=== PATIENT | male | born 1955 | race African-American/Black ===

== ENCOUNTER 2016-11-30 05:28 | Day surgery (SDC) | payer OTHER ==
[2016-11-30] VITALS (9 sets, daily range): BP systolic 107–134; BP diastolic 70–86; PULSE 56–68; RESP 12–20; Ht 180.3 cm; Wt 111.6 kg
[~2016-11-30] VITALS: Ht 180.3 cm; Wt 111.6 kg
[2016-11-30] MEDS ORDERED: PHENYLephrine 2.5% 15 ML OPH OPER SCH (06:00)
[2016-11-30] MEDS ORDERED: CIPROFLOXACIN 0.3% 2.5 ML OPH OPER SCH (06:00)
[2016-11-30] MEDS ORDERED: PROPARACAINE 0.5% 15 ML OPH OPER SCH (06:00)
[2016-11-30] MEDS ORDERED: TROPICAMIDE 1% 15 ML OPH OPER SCH (06:00)
[2016-11-30] MEDS ORDERED: ACETAZOLAMIDE (SR) 500 MG CAP PO ONE (06:00)
[2016-11-30] MEDS ORDERED: EPINEPHrine 1 MG INJ ONE (06:42)
[2016-11-30] MEDS ORDERED: CEFAZOLIN 1 GM INJ ONE (06:42)
[2016-11-30] MEDS ORDERED: LIDOCAINE 1% (MPF) 10 ML INJ ONE (06:42)
[2016-11-30] MEDS ORDERED: DEXAMETHASONE 4 MG/ML 1 ML INJ ONE (06:42)
[2016-11-30] MEDS ORDERED: SODIUM HYALURONATE 14 MG/ML SYG ONE (06:44)
--- NOTE | 2016-11-30 06:58 | PREOPHP ---
DATE OF ADMISSION: 11/30/2016 CHIEF COMPLAINT: I'm having difficulty seeing with my other eye, and it is causing a lot of imbalan ce. HISTORY OF PRESENT ILLNESS: This is an almost 61-year-old gentleman who has been having painless pr ogressive loss of vision in both eyes, has ____ cataract extraction with good result in the right ey e. Now he requests to have the left eye done so that he can focus both eyes together and get rid of this imbalance between the 2 eyes. PAST MEDICAL HISTORY: Significant for osteoarthritis and hyperlipidemia. MEDICATIONS: Include: 1. Naproxen. 2. Cosopt eyedrops. ALLERGIES: THERE ARE NO KNOWN DRUG ALLERGIES. PAST SURGICAL HISTORY: Significant for the cataract in the right eye in 2016. REVIEW OF SYSTEMS: He denies having any fever, chills, nausea, vomiting, diarrhea, constipation, sh ortness of breath, chest pain, dysuria, dyspnea, any cough. SOCIAL HISTORY: He denies any history of smoking. PHYSICAL EXAMINATION: GENERAL: He is a well-developed, well-nourished gentleman. No acute distress. VITAL SIGNS: Temperature is 97.6, pulse 66, respirations 18, blood pressure is 122/80. Weight appr oximately 250 pounds. HEAD: Normocephalic, atraumatic. EARS, NOSE AND THROAT: Within normal limits. EYES: ____ acuity is count finger in both eyes. The slit lamp examination is essentially within no rmal limits. Pressure is 12 on the right, 16 on the left. The dilated exam shows posterior chamber intraocular lens in the right eye ____ nuclear sclerosis. Funduscopic examination shows cup-to-dis k about 0.9 with normal macula, disc, vessels and periphery. NECK: Supple. No lymphadenopathy. Normal thyroid. LUNGS: Clear to auscultation and percussion. HEART: Regular rate and rhythm. ABDOMEN: Soft, nontender, nondistended. Positive bowel sounds. EXTREMITIES: No cyanosis, clubbing or edema ____ intact. IMPRESSION: 1. Cataracts. 2. Pseudophakia. 3. Glaucoma. 4. Osteoarthritis. 5. Hyperlipidemia. RECOMMENDATIONS: Risks, benefits, complication and alternatives explained to the patient which incl ude infection, bleeding, loss of vision, loss of eye, from anesthesia, need for second surgery , retinal detachment, irregular pupil, irregular cornea, ptosis, globe perforation and diplopia. Th e patient understands these risks and would like to go have the surgery. Dictated By: JENNIE SULLIVAN/DONAVON Conf#: [id number] DID#: [id number]
[2016-11-30] MEDS ORDERED: BALANCED SALT SOLN 500 ML OPH IRRIG ONE (07:00)
[2016-11-30] MEDS: LIDOCAINE 3.5% GEL TUBE OPER SCH ×2 (07:03→07:10)
[2016-11-30] MEDS ORDERED: LIDOCAINE 1% (MPF) 10 ML INJ INJ ONE (07:03)
[2016-11-30] MEDS ORDERED: SODIUM HYALURONATE 10 MG/ML SYG IO ONE (07:04)
[2016-11-30] MEDS ORDERED: DEXAMETHASONE 4 MG/ML 1 ML INJ INJ ONE (07:05)
[2016-11-30] MEDS ORDERED: CEFAZOLIN 1 GM INJ INJ ONE (07:06)
[2016-11-30] MEDS ORDERED: PROPOFOL 20 ML ONE (07:41)
[2016-11-30] MEDS ORDERED: MIDAZOLAM 1 MG/ML 2 ML INJ ONE (07:41)
[2016-11-30] MEDS ORDERED: FENTAnyl 50 MCG/ML VIAL ONE (07:41)
[2016-11-30] MEDS ORDERED: NAPROXEN (07:48)
[2016-11-30] MEDS ORDERED: morphine (1 MG/ML) 10ML SYRINGE IV PRN (08:00)
[2016-11-30] MEDS ORDERED: MEPERIDINE 25 MG INJ IV PRN (08:00)
[2016-11-30] MEDS ORDERED: DIPHENHYDRAMINE 50 MG INJ IV PRN (08:00)
[2016-11-30] MEDS ORDERED: ONDANSETRON 4 MG INJ IV PRN (08:00)
--- NOTE | 2016-11-30 09:36 | OPR ---
DATE OF OPERATION: 11/30/2016 PREOPERATIVE DIAGNOSIS: Cataract of the left eye. POSTOPERATIVE DIAGNOSIS: Cataract of the left eye. SURGEON: Mustapha Foster MD SAP PI DEVELOPER: None. ANESTHESIOLOGIST: Dr. Reid. PROCEDURE: Extracapsular cataract extraction with intraocular lens implantation using phacoemulsifi cation technique with the Madan lens SA60WF 20.5 diopter, left eye. COMPLICATIONS: None. ESTIMATED BLOOD LOSS: Less than 1 mL. ANESTHESIA: 1% subconjunctival lidocaine preservative-free. INDICATION: This is a 60-year-old gentleman who has been having pending progressive loss of vision in both eyes. He also has a long history of glaucoma which has been advanced and is in advanced sta ges. He has noticed decreased vision and he would like to have surgery to improve the vision and al so mainly to lower the eye pressure even further. The right eye was done a few months ago and the p ressure has dropped tremendously, and this has been a protective effect for the progression of the g laucoma. DESCRIPTION OF PROCEDURE: The patient was taken to the operating room in stable condition and place d in the heart and lung monitors, and monitored throughout the whole case. Next, the wide lid specu lum was placed in the conjunctival fornices. Subconjunctival injection was given with a 30 gauge ne edle using a 1% preservative-free lidocaine. The paracentesis port was made at about 5 o'clock posi tion, and then with the use of a keratome, the anterior chamber was entered through the superotempor al area. Next, Healon was injected into the anterior chamber and a capsulorrhexis was performed in a curvilinear fashion with the use of a cystotome. Balanced salt solution on a cannula was used to perform hydrodissection and hydrodelineation. Then, the phaco tip was entered into the anterior silvia mber and nucleus was phacoemulsified using a divide and conquer technique with the use of a second i nstrument. The cortical material was removed with the irrigation aspiration unit and then Healon wa s injected into the anterior chamber. The lens was folded and placed in the capsular bag without an y complication. The haptics were placed at 3 o'clock and 9 o'clock position, and then the Healon wa s taken out of the eye with irrigation aspiration unit again. The wound hydration was done and the 10-0 nylon suture was used to close the wound and there was no leakage noted. The wound integrity was checked and there was no leakage noted. A subconjunctival i njection of Ancef and Decadron was given inferiorly. Then, the wide lid speculum and drapes were re moved. Topical Ocuflox was placed onto the eye. The eye was patched and shield placed over it. Th e patient tolerated the procedure well. There were no complications. Dictated By: MUSTAPHA SULLIVAN/DONAVON Conf#: [id number] DID#: [id number]
== END 2016-11-30 09:30 | disposition home or self-care (01) ==
LOC: SDS 05:28
PROVIDERS: ATTEND Ophthalmology
DX: H25.12 Age-related nuclear cataract, left eye (principal); E78.5 Hyperlipidemia, unspecified; E66.9 Obesity, unspecified; Z68.34 Body mass index [BMI] 34.0-34.9, adult
CPT/HCPCS: 66984; J0171; J0690; J1100; J2250; J3010; V2630; Z7512; Z7610